=== PATIENT | female | born 1990 | race Caucasian/White ===

== ENCOUNTER 2021-01-27 13:37 | Emergency (ER) | payer OTHER, SELFPAY ==
[2021-01-27 13:50] VITALS: BP 146/87; PULSE 95; RESP 16; TEMP 37.8; O2SAT 100
[2021-01-27 13:56] VITALS: BP 146/87; PULSE 95; RESP 16; TEMP 37.8; O2SAT 100
--- NOTE | 2021-01-27 13:59 | ED.GENADULT ---
HPI - General Adult General Chief complaint: Upper Respiratory Infection Stated complaint: Throat irritation Source: patient Mode of arrival: ambulatory Limitations: no limitations History of Present Illness HPI narrative: Patient presents for evaluation of sore throat and postnasal drainage for last 5 days. She indicates she is an underlying history of environmental allergies and thought her symptoms were related to that. She has been taking Sudafed with some improvement in her symptoms thereafter. Last night she had some hot flashes and chills. She has any objective fever, per her complaints, nausea, vomiting, diarrhea. No recent sick contacts. She has received full vaccination for COVID. She does smoke marijuana socially but denies any cigarette use. Related Data Home Medications Medication Instructions Recorded Confirmed cetirizine 10 mg tablet 10 mg PO DAILY 10/07/19 01/27/21 norethindrone (contraceptive) 0.35 0.35 mg PO DAILY 10/07/19 01/27/21 mg tablet Allergies Allergy/AdvReac Type Severity Reaction Status Date / Time erythromycin base Allergy Unknown Stomach Verified 03/22/18 15:35 cramps witch sangita Allergy Unknown Verified 10/07/19 07:18 Review of Systems Review of Systems: Narrative: CONSTITUTIONAL: Reports hot flashes and chills last night. Denies fever.. EYES: Denies visual changes, redness, or discharge. ENT: Reports postnasal drainage and sore throat. Denies otalgia CARDIOVASCULAR: Denies chest pain, palpitations, or edema. RESPIRATORY: Denies cough or dyspnea. GASTROINTESTINAL: Denies abdominal pain, nausea, vomiting, or diarrhea. GENITOURINARY: Denies dysuria or hematuria. SKIN: Denies rash or itching. MUSCULOSKELETAL: Denies back pain, joint pain, or myalgia. NEUROLOGIC: Denies headache, numbness, dizziness, or weakness. PSYCHIATRIC: Denies anxiety or depression. [facility] Past Medical History Medical History Allergies Anxiety Headache Heartburn Hemorrhoids HLD (hyperlipidemia) Family History Family History Mother Hypertension Patient's mother is in good health Father Patient's father is in good health Family history of cardiovascular disease Social History Social History Smoking status: Never smoker Alcohol intake: current Gender identity (if verbalized by the patient): Female Exam Narrative: Exam Narrative: GENERAL: Well-appearing, well-nourished, and in no acute distress. HEAD: Normocephalic, atraumatic. EYES: PERRLA and EOMI. ENT: Nares clear, no rhinorrhea or epistaxis. Mucous membranes moist. Oropharynx without tonsillar hypertrophy exudate or other lesions. Bilateral TMs pearly olsen nonbulging NECK: Supple. No adenopathy or masses. No carotid bruits or JVD CHEST: Clear to auscultation. No respiratory distress. No wheezes rales or rhonchi HEART: Regular rate and rhythm. No murmur heard. Normal peripheral pulses. ABDOMEN: Soft, nontender, nondistended, normal active bowel sounds. EXTREMITIES: Normal range of motion. No edema. SKIN: Warm, dry, no rash. NEURO: No focal deficits. Alert and oriented x3. PSYCH: Normal mood and affect. Course Course Emergency Course: Is a 22-year-old female who presented with complaints of sore throat and postnasal drainage. Strep was negative. Declined mono testing. Physical exam fairly unremarkable. Likely viral URI and allergic in nature. Advised increased hydration. Offered cepacol which she declined. Phenylephrine may help. She will puchase OTC. Follow up outpatient for further evaluation and treatment and return for worsening symptoms. Pt in agreement with plan of care. Vital Signs Vital signs: Vital Signs Temperature 37.8 C H 01/27/21 13:50 Pulse Rate 95 01/27/21 13:50 Respiratory Rate 16 01/27/21 13:50 Blood Pressure 14
== END 2021-01-27 14:34 | disposition home or self-care (01) ==
PROVIDERS: Emergency Provider Nurse Practitioner; PCP Internal Medicine
DX: J30.2 Other seasonal allergic rhinitis (principal); E78.5 Hyperlipidemia, unspecified; F41.9 Anxiety disorder, unspecified
CPT/HCPCS: 87081; 87880; 99213; G0463

== ENCOUNTER 2021-04-27 12:31 | Emergency (ER) | payer OTHER, SELFPAY ==
[2021-04-27 13:07] VITALS: BP 130/89; PULSE 94; RESP 18; TEMP 36.8; O2SAT 100
--- NOTE | 2021-04-27 13:33 | ED.URI ---
HPI - URI/Sore Throat General Chief Complaint: Upper Respiratory Infection Stated Complaint: Sore throat,muscle pain,sinus Time Seen by Provider: 04/27/21 13:33 Source: patient Mode of arrival: ambulatory Limitations: no limitations History of Present Illness HPI Narrative: Gianna Baker is a 31 yo female with a PMH of anxiety, seasonal allergies, migraine headaches, [facility] throat not feeling well. She states she has had symptoms for a few days and nothing she does is making feeling better. She has been vaccinated. Has a history of strep-no nausea vomiting or diarrhea Related Data Home Medications Medication Instructions Recorded Confirmed cetirizine 10 mg tablet 10 mg PO DAILY 10/07/19 01/27/21 norethindrone (contraceptive) 0.35 0.35 mg PO DAILY 10/07/19 01/27/21 mg tablet Allergies Allergy/AdvReac Type Severity Reaction Status Date / Time erythromycin base Allergy Unknown Stomach Verified 03/22/18 15:35 cramps witch sangita Allergy Unknown Verified 10/07/19 07:18 Review of Systems Review of Systems: CONSTITUTIONAL: Denies fever, chills, sweats. Generally not feel EYES: Denies visual changes, redness, discharge. ENT: Denies rhinorrhea, hascongestion, has sore throat, otalgia. CARDIOVASCULAR: Denies chest pain, palpitations, edema. RESPIRATORY: Denies dyspnea, wheezing, cough GASTROINTESTINAL: Denies abdominal pain, nausea, vomiting, diarrhea. GENITOURINARY: Denies dysuria, hematuria, abnormal discharge SKIN: Denies rash or itching. NEUROLOGIC: Denies numbness, or focal weakness. PSYCHIATRIC: Denies anxiety or depression. [facility] Past Medical History Medical History Allergies Anxiety Headache Heartburn Hemorrhoids HLD (hyperlipidemia) Family History Family History Mother Hypertension Patient's mother is in good health Father Patient's father is in good health Family history of cardiovascular disease Social History Social History Smoking status: Never smoker Alcohol intake: current Alcohol use details: occasionally Gender identity (if verbalized by the patient): Female Comments At time of signature, I agree with nursing past medical, surgical, social and family history. There is no relevant family history pertinent to the presenting complaint. Exam Narrative: GENERAL: This is a well-nourished, well-developed patient, in mild distress. HEAD: normocephalic, atraumatic. EYES: Sclera clear/white. Vision is grossly intact. EARS: External ears normal, auditory canals clear on the left , mild erythema on right and without drainage, TMs normal without perforation. Hearing grossly intact. NOSE: External nose normal without nasal discharge, nares without redness, no rhinorrhea. THROAT: Mucous membranes moist, posterior pharynx erythema with white patches NECK: Neck supple, submandibular tender CARDIOVASCULAR: Tachycardic rate and rhythm without murmurs, gallops, or rubs. RESPIRATORY: Clear to auscultation. Breath sounds equal bilaterally. No wheezes, rales, or rhonchi. GASTROINTESTINAL: Abdomen soft, SKIN: warm, intact with no suspicious lesions or rash, good texture and turgor. NEURO: awake, alert, and oriented to person, place and time. There were no obvious focal neurologic abnormalities. Steady gait EXTREMITIES: Normal range of motion. BACK: Nontender without deformity Course Course Emergency Course: Patient comes to [facility] with sore throat and not feeling well times the 2 days, rapid Covid test at home last night which negative strep test was positive-Dexamethasone 4 mg IM Started on clindamycin 300 mg 3 times daily daily; recommended Cepacol Vital Signs Vital signs: Vital Signs Temperature 98.2 F 04/27/21 13:07 Pulse Rate 94 04/27/21 13:07 Respiratory Rate 18
== END 2021-04-27 13:58 | disposition home or self-care (01) ==
PROVIDERS: Emergency Provider Nurse Practitioner; PCP Internal Medicine
DX: J02.0 Streptococcal pharyngitis (principal); R12 Heartburn; E78.5 Hyperlipidemia, unspecified
CPT/HCPCS: 87880; 96372; 99213; G0463; J1100

== ENCOUNTER 2021-07-04 15:55 | Outpatient (CLI) | payer OTHER, SELFPAY ==
[2021-07-04 16:37] LABS: Basophils Absolute Auto 0.1 K/mm3 (0.0-0.1); Basophils Percent Auto 0.5 % (0.2-1.2); Eosinophils Percent Auto 0.1 % (0-4.4); Hematocrit 44.5 % (37.0-47.0); Hemoglobin 15.4 g/dL (12.0-15.0); Immature Granulocyte Absolute 0.02 K/mm3 (0.00-0.031); Immature Granulocyte Percent A 0.2 % (0-0.5); Lymphocytes Absolute Auto 1.97 K/mm3 (0.9-3.2); Lymphocytes Percent Auto 18.7 % (18.3-44.2); Mean Corpuscular HGB Conc 34.6 g/dl (32-36); Mean Corpuscular Hemoglobin 32.6 pg (26-34); Mean Corpuscular Volume 94.1 fl (80-100); Mean Platelet Volume 9.9 fl (7.4-10.4); Monocytes Absolute Auto 0.4 K/mm3 (0.1-0.6); Monocytes Percent Auto 4.1 % (2.6-8.5); Neutrophils Absolute Auto 8.1 K/mm3 (1.3-6.7); Neutrophils Percent Auto 76.4 % (45.5-73.1); Platelet Count Result 326 k/mm3 (150-375); Red Blood Count 4.73 M/mm3 (4.2-5.4); Red Cell Distribution Width 11.8 % (11.5-14.5); White Blood Count 10.5 K/mm3 (4.5-10.0)
[2021-07-04 16:50] LABS: Alanine Aminotransferase 16 U/L (4-35); Albumin Level 5.1 g/dL (3.5-5.1); Alkaline Phosphatase 49 U/L (38-126); Anion Gap 8 mmol/L (8-16); Aspartate Amino Transferase 27 U/L (14-36); Bilirubin,Total 0.7 mg/dL (0.2-1.3); Blood Urea Nitrogen 10 mg/dL (7-17); Calcium 10.5 mg/dL (8.4-10.2); Carbon Dioxide 29 mmol/L (22-30); Chloride 103 mmol/L (98-107); Cholesterol 208 mg/dL (0-200); Estimated Glomerular Filt Rate > 60; Glucose 96 mg/dL (65-110); HDL Direct 76 mg/dL; Sodium 140 mmol/L (137-145); Triglycerides 175 mg/dL (<150)
[2021-07-04 17:01] LABS: LDL Cholesterol Direct 107 mg/dL
[2021-07-04 17:13] LABS: Erythrocyte Sedimentation Rate 9 mm/hr (0-20)
[2021-07-04 17:21] LABS: Thyroid Stimulating Hormone 0.667 uIU/mL (0.465-4.680)
[2021-07-04 18:50] LABS: Rheumatoid Factor < 8.6 IU/ML (<12)
[2021-07-09 04:34] LABS: Anti Nuclear Antibody Pattern Nuclear, Speckled
== END 2021-07-04 15:56 | disposition home or self-care (01) ==
LOC: ANHLAB 16:01
PROVIDERS: PCP Internal Medicine; Visit Provider Clinical Nurse Specialist
DX: M35.3 Polymyalgia rheumatica (principal); F41.9 Anxiety disorder, unspecified; E78.5 Hyperlipidemia, unspecified
CPT/HCPCS: 36415; 80053; 80061; 84443; 85025; 85652; 86038; 86039; 86430

== ENCOUNTER 2021-07-04 16:04 | Outpatient (CLI) | payer OTHER, SELFPAY ==
[2021-07-04 17:30] LABS: HIV 1/2 Ab P24 Ag Result Negative (Negative)
[2021-07-04 18:31] LABS: Hepatitis B Surface Antigen Negative (Negative)
[2021-07-04 18:36] LABS: Hepatitis B Core IgM Result Negative (Negative)
[2021-07-04 18:48] LABS: Hepatitis C Virus Antibody Negative (Negative)
[2021-07-05 10:17] LABS: Rapid Plasma Reagin Non-Reactive (NonReactive)
== END 2021-07-04 16:05 | disposition home or self-care (01) ==
LOC: ANHLAB 16:06
PROVIDERS: PCP Internal Medicine; Visit Provider Obstetrics & Gynecology
DX: A64 Unspecified sexually transmitted disease (principal)
CPT/HCPCS: 36415; 80053; 80061; 84443; 85025; 85652; 86038; 86039; 86430; 86592; 86695; 86696; 86703; 86705; 86803; 87340; G0432

== ENCOUNTER 2021-08-27 15:34 | Outpatient (CLI) | payer OTHER, SELFPAY ==
[2021-08-27 16:01] LABS: Basophils Absolute Auto 0.1 K/mm3 (0.0-0.1); Basophils Percent Auto 0.7 % (0.2-1.2); Eosinophils Absolute Auto 0.3 K/mm3 (0-0.3); Eosinophils Percent Auto 2.5 % (0-4.4); Hematocrit 43.4 % (37.0-47.0); Hemoglobin 15.1 g/dL (12.0-15.0); Immature Granulocyte Absolute 0.03 K/mm3 (0.00-0.031); Immature Granulocyte Percent A 0.3 % (0-0.5); Lymphocytes Absolute Auto 3.25 K/mm3 (0.9-3.2); Lymphocytes Percent Auto 31.9 % (18.3-44.2); Mean Corpuscular HGB Conc 34.8 g/dl (32-36); Mean Corpuscular Hemoglobin 32.1 pg (26-34); Mean Corpuscular Volume 92.3 fl (80-100); Mean Platelet Volume 9.6 fl (7.4-10.4); Monocytes Absolute Auto 0.6 K/mm3 (0.1-0.6); Monocytes Percent Auto 6.3 % (2.6-8.5); Neutrophils Percent Auto 58.3 % (45.5-73.1); Platelet Count Result 286 k/mm3 (150-375); Red Cell Distribution Width 11.8 % (11.5-14.5); White Blood Count 10.2 K/mm3 (4.5-10.0)
[2021-08-27 16:14] LABS: CRP < 0.5 mg/dL (<1.0); Creatine Kinase 107 U/L (30-135)
[2021-08-27 16:42] LABS: Cortisol Random 6.47 ug/dL
[2021-08-27 16:51] LABS: Free T4 Free Thyroxine 1.23 ng/mL (0.78-2.19)
[2021-08-29 19:46] LABS: RNP Antibodies <1.0
[2021-08-30 22:11] LABS: Anti Cyclic Citrullinated Pept <16 Units (<20)
[2021-09-01 13:59] LABS: Aldolase 4.2 U/L (<=8.1)
== END 2021-08-27 15:35 | disposition home or self-care (01) ==
LOC: ANHLAB 15:37
PROVIDERS: PCP Internal Medicine; Visit Provider Internal Medicine
DX: M35.3 Polymyalgia rheumatica (principal); R53.83 Other fatigue; R76.8 Other specified abnormal immunological findings in serum
CPT/HCPCS: 36415; 82085; 82533; 82550; 84439; 84481; 85025; 86140; 86200; 86225; 86235

== ENCOUNTER 2021-10-01 16:17 | Outpatient (CLI) | payer OTHER, SELFPAY ==
[2021-10-03 19:37] LABS: Aldolase 3.7 U/L (<=8.1)
== END 2021-10-01 16:18 | disposition home or self-care (01) ==
LOC: ANHLAB 16:20
PROVIDERS: PCP Internal Medicine
DX: M79.10 Myalgia, unspecified site (principal)
CPT/HCPCS: 36415; 82085; 84182; 86235

== ENCOUNTER 2022-07-11 11:34 | Outpatient (CLI) | payer OTHER, SELFPAY ==
[2022-07-11 12:28] LABS: Alanine Aminotransferase 19 U/L (6-35); Albumin Level 4.8 g/dL (3.5-5.1); Alkaline Phosphatase 38 U/L (38-126); Anion Gap 8 mmol/L (8-16); Aspartate Amino Transferase 24 U/L (14-36); Bilirubin,Total 1.1 mg/dL (0.2-1.3); Blood Urea Nitrogen 7 mg/dL (7-17); Calcium 9.4 mg/dL (8.4-10.2); Carbon Dioxide 30 mmol/L (22-30); Chloride 99 mmol/L (98-107); Estimated Glomerular Filt Rate > 60; Glucose 92 mg/dL (65-110); Magnesium 2.1 mg/dL (1.6-2.3); Phosphorus 3.1 mg/dL (2.5-4.5); Sodium 137 mmol/L (137-145)
[2022-07-11 13:16] LABS: Vitamin D 25 Hydroxy 45.6 ng/mL
[2022-07-11 13:32] LABS: Parathyroid Intact 34.9 pg/mL (7.5-53.5)
[2022-07-16 05:15] LABS: Zinc 89 mcg/dL (60-130)
[2022-07-16 10:24] LABS: Vitamin B6 58.4 ng/mL (2.1-21.7)
[2022-07-16 17:11] LABS: Gliadin AB, IgG <1.0 U/mL (<15.0); TTG IGA AB <1.0 U/mL (<15.0)
== END 2022-07-11 11:35 | disposition home or self-care (01) ==
LOC: ANHLAB 11:36
PROVIDERS: PCP Internal Medicine; Visit Provider Internal Medicine Endocrinology, Diabetes & Metabolism
DX: R74.8 Abnormal levels of other serum enzymes (principal); E04.9 Nontoxic goiter, unspecified
CPT/HCPCS: 36415; 80053; 82306; 83516; 83735; 83970; 84100; 84207; 84630; 86255

== ENCOUNTER 2022-07-16 11:05 | Outpatient (CLI) | payer OTHER, SELFPAY ==
--- NOTE | ~2022-07-16 | US_ITS ---
EXAMINATION: US thyroid DATE: 07/16/2022 11:36 INDICATION: Goiter. TECHNIQUE: Multiple ultrasound images of the thyroid were obtained. COMPARISON: None. FINDINGS: The right thyroid lobe measures 5.6 x 1.4 x 1.8 cm. The left thyroid lobe measures 4.6 x 1.5 x 1.7 c m. In the left thyroid lobe, there is a 6 mm solid, hypoechoic, wider than tall nodule with smooth m argin without echogenic foci (TI-RADS TR4). In the right thyroid lobe, there is a 5 mm cystic nodule (TR1). IMPRESSION: 1. Small thyroid nodules, likely not clinically significant. No follow-up is needed. Reviewed, dictated and finalized at location A. ASSISTANT MANAGER IMPRESSION: 1. Small thyroid nodules, likely not clinically significant. No follow-up is ne eded.
== END 2022-07-16 11:06 | disposition home or self-care (01) ==
PROVIDERS: PCP Internal Medicine; Visit Provider Internal Medicine Endocrinology, Diabetes & Metabolism
DX: E04.2 Nontoxic multinodular goiter (principal)
CPT/HCPCS: 76536

== ENCOUNTER 2022-11-05 14:33 | Outpatient (CLI) | payer OTHER, SELFPAY ==
[2022-11-05 20:14] LABS: Free T4 Free Thyroxine 1.16 ng/mL (0.78-2.19)
[2022-11-09 03:45] LABS: Triiodothyronine T3 Free 4.1 pg/mL (2.3-4.2)
== END 2022-11-05 14:34 | disposition home or self-care (01) ==
LOC: ANHGOSHLAB 14:34
PROVIDERS: PCP Internal Medicine; Visit Provider Nurse Practitioner
DX: R79.89 Other specified abnormal findings of blood chemistry (principal)
CPT/HCPCS: 36415; 84439; 84443; 84481

== ENCOUNTER → 2022-11-05 14:56 | Outpatient (CLI) | payer OTHER, SELFPAY ==
--- NOTE | ~2022-11-05 | XR_ITS ---
AP view of the pelvis and AP and lateral views of the bilateral hips Clinical history: Pain Findings: No acute fracture or dislocation is seen. Osseous alignment is anatomic. Bilateral hip and SI joint spaces are preserved. Soft tissues are unremarkable. IUD in place. Impression: IUD in place, otherwise unremarkable exam. Reviewed, dictated and finalized at location M. Impression: IUD in place, otherwise unremarkable exam.
--- NOTE | ~2022-11-05 | XR_ITS ---
Lumbosacral Spine: AP and lateral views Clinical History: Pain Findings: The normal lordotic curve is maintained. The vertebral bodies and posterior elements are i ntact. The intervertebral disc spaces are preserved. The sacroiliac joints are normally outlined. Impression: No significant abnormality. Reviewed, dictated and finalized at [facility]. Impression: No significant abnormality.
== END ==
PROVIDERS: PCP Internal Medicine; Visit Provider Nurse Practitioner
DX: M25.559 Pain in unspecified hip (principal); M54.50 Low back pain, unspecified; Z97.5 Presence of (intrauterine) contraceptive device
CPT/HCPCS: 72100; 73521

== ENCOUNTER 2023-04-29 12:40 | Outpatient (CLI) | payer OTHER, SELFPAY ==
--- NOTE | ~2023-04-29 | MMUS_ITS ---
EXAMINATION: MM diagnostic alesha LT w natalie, US breast LT limited HISTORY: Left breast lump at 10-11:00 TECHNIQUE: Full field and spot ML, MLO and CC 3-D tomosynthesis images of the left breast were perfor med and synthetic 2-D images were generated. CAD analysis was submitted and interpreted. High resolut ion targeted left breast ultrasound examination at area of clinical complaint was performed. COMPARISON: None BREAST PARENCHYMAL COMPOSITION: The breasts are extremely dense, which lowers the sensitivity of mamm ography. FINDINGS: MAMMOGRAPHIC FINDINGS: No suspicious mass, architectural distortion, malignant calcification, skin thickening or retraction is detected. ULTRASOUND: 9:00 3 cm from nipple: There is a parallel circumscribed mixed peripheral soft tissue and central fat ty lesion measuring approximately 17 x 5.6 x 17.5 mm, without suspicious shadowing or internal vascul arity. Differential diagnosis includes benign processes such as lymph node or lipoma. No suspicious mass or shadowing is detected at the area of clinical complaint. IMPRESSION: 1. Benign finding; no mammographic or sonographic evidence of malignancy is detected 2. Routine annual mammographic screening is recommended BI-RADS Category 2: Benign finding(s). Reviewed, dictated and finalized at location A. IMPRESSION: 1. Benign finding; no mammographic or sonographic evidence of malignancy is det ected 2. Routine annual mammographic screening is recommended BI-RADS Category 2: Benign finding(s).
== END 2023-04-29 12:41 | disposition home or self-care (01) ==
LOC: ANHIMG 13:16
PROVIDERS: PCP Internal Medicine; Visit Provider Clinical Nurse Specialist
DX: N63.20 Unspecified lump in the left breast, unspecified quadrant (principal)
CPT/HCPCS: 76642; 77061; 77065; G0279

== ENCOUNTER 2023-08-28 14:11 | Emergency (ER) | payer OTHER, SELFPAY ==
[2023-08-28 14:26] VITALS: BP 174/159; PULSE 99; RESP 18; TEMP 37.2; O2SAT 100
--- NOTE | 2023-08-28 14:26 | ED.URI ---
HPI - URI/Sore Throat General Chief Complaint: Upper Respiratory Infection Stated Complaint: SINUS CONGESTION Time Seen by Provider: 08/28/23 14:44 Source: patient, RN notes reviewed and old records reviewed Mode of arrival: ambulatory Limitations: no limitations History of Present Illness HPI Narrative: 33-year-old female presents to the [facility] with sinus congestion since the 15 August, 13 days Patient states that she takes Zyrtec daily. Has tried Mucinex, Afrin, Sudafed Patient states that she is just not getting any better. Has frontal sinus pressure when she leans forward. Denies any fevers. Onset (ago): day(s) () Related Data Home Medications Medication Instructions Recorded Confirmed cetirizine 10 mg tablet (Zyrtec) 10 mg PO DAILY 10/07/19 08/28/23 levonorgestrel 21 mcg/24 hours (8 1 device intrauterine ONCE 11/19/21 08/28/23 yrs) 52 mg intrauterine device (Mirena) baclofen 10 mg tablet 10 mg PO DAILY 11/05/22 08/28/23 celecoxib 200 mg capsule (Celebrex) 200 mg PO DAILY 11/05/22 08/28/23 clonazepam 0.5 mg tablet 0.5 mg PO DAILY 11/05/22 08/28/23 dextroamphetamine-amphetamine 10 10 mg PO BID 11/05/22 08/28/23 mg tablet gabapentin 600 mg tablet 600 mg PO TID 11/05/22 08/28/23 duloxetine 60 mg capsule,delayed 120 mg PO DAILY 04/21/23 08/28/23 release naltrexone 50 mg tablet 12 mg PO DAILY 06/11/23 08/28/23 Allergies Allergy/AdvReac Type Severity Reaction Status Date / Time erythromycin base Allergy Intermediate Abdominal Verified 08/28/23 14:23 Pain amoxicillin AdvReac Intermediate Nausea and Verified 08/28/23 14:23 Vomiting Review of Systems Review of Systems: All systems reviewed & are unremarkable except as noted in HPI and below Constitutional: Constitutional: Reports no additional constitutional complaints Eyes: Eyes: Reports no additional eye complaints ENT: Reports as per HPI, Reports nasal congestion, Reports sinus pressure and Denies sore throat Cardiovascular: Cardiovascular: Reports no additional cardiovascular complaints, Denies chest pain and Denies dyspnea Respiratory: Respiratory: Reports no additional respiratory complaints, Denies chest congestion, Denies cough and Denies dyspnea Gastrointestinal: Gastrointestinal: Reports no additional gastrointestinal complaints, Denies abdominal pain, Denies nausea and Denies vomiting Musculoskeletal: Musculoskeletal: Reports no additional musculoskeletal complaints Integumentary/Breasts: Skin/Breast: Reports system reviewed and no additional complaints, except as docu Neurologic: Reports system reviewed and no additional complaints, except as documented Psychiatric: Psychiatric: Reports no additional psychiatric complaints Allergic/Immunologic: Allergic/Immunologic: Reports no additional allergic/immunologic complaints [facility] Past Medical History Medical History Allergies Anxiety Chronic pain syndrome Headache Heartburn Hemorrhoids HLD (hyperlipidemia) Family History Family History Mother Hypertension Patient's mother is in good health Father Patient's father is in good health Family history of cardiovascular disease Other Lupus Social History Social History Smoking status: Never smoker Alcohol intake: current Alcohol use details: occasionally Substance use: current Substance use type: marijuana Lack of Transportation: No Lack of Food: Never True Current Housing: I Have Housing Concerned About Future Housing: No Difficulty Paying Gas/Electric Bills: No Difficulty Paying for Meds: No Currently Unemployed: No Education: Bachelor's Degree Difficulty w/ Childcare or Family Care: No Gender identity (if verbalized by the patient): Female Comments At the time of my signature, I reviewed and agree with the eleanor
[2023-08-28 14:35] VITALS: BP 144/92
== END 2023-08-28 15:03 | disposition home or self-care (01) ==
PROVIDERS: Emergency Provider Nurse Practitioner; PCP Internal Medicine
DX: J01.41 Acute recurrent pansinusitis (principal); F12.90 Cannabis use, unspecified, uncomplicated; E78.5 Hyperlipidemia, unspecified; F41.9 Anxiety disorder, unspecified
CPT/HCPCS: 99213; G0463

== ENCOUNTER 2024-05-23 14:33 | Outpatient (CLI) | payer OTHER, SELFPAY ==
--- NOTE | ~2024-05-23 | XR_ITS ---
EXAMINATION: XR chest 2V Exam Date/Time: 05/23/2024 14:34 CDT HISTORY: cough sob congestion for 1 week Comparison: None. RESULT: Lines, tubes, and devices: None. Lungs and pleura: Clear. Cardiomediastinal silhouette: Normal. Other: No acute osseous or upper abdominal finding. IMPRESSION: No acute cardiopulmonary process. Reviewed, dictated and finalized at location K.
== END 2024-05-23 14:34 | disposition home or self-care (01) ==
PROVIDERS: PCP Internal Medicine; Visit Provider Nurse Practitioner
DX: R05.9 Cough, unspecified (principal); R06.02 Shortness of breath; R09.89 Other specified symptoms and signs involving the circulatory and respiratory systems
CPT/HCPCS: 71046